=== PATIENT | male | born 1990 | race Two or more races ===

== ENCOUNTER 2017-11-11 01:33 | Emergency (ER) | payer BC ==
[~2017-11-11] VITALS: Ht 167.6 cm; Wt 77.1 kg
[2017-11-11] MEDS ORDERED: BUPR-96 PO (01:45)
--- NOTE | 2017-11-11 01:48 | NUR ---
DR. SOLIMAN AT BEDSIDE FOR MSE.
[2017-11-11] MEDS ORDERED: DICYCLOMINE HCL 10 MG/5 ML UDC LIQ ONE (01:58)
[2017-11-11] MEDS ORDERED: MAG HYDROX/AL HYDROX/SIMETH 30 ML LIQUID UDC ONE ×2 (01:58)
--- NOTE | 2017-11-11 01:59 | NUR ---
PT GIVEN GI COCKTAIL. PT RESTING COMFORTABLY IN BED.
[2017-11-11] MEDS ORDERED: DICYCLOMINE HCL 10 MG/5 ML UDC LIQ PO ONE (02:00)
[2017-11-11] MEDS ORDERED: MAG HYDROX/AL HYDROX/SIMETH 30 ML LIQUID UDC PO ONE (02:00)
--- NOTE | 2017-11-11 02:18 | NUR ---
Patient discharged to home in stable conditon. Written and verbal after care instructions given. Patient verbalizes understanding of instructions. Pt left ER and walks in steady gait. Pt denies any SOB/Chest pain at this time.
[2017-11-11 02:19] VITALS: BP 144/101
== END 2017-11-11 02:20 | disposition home or self-care (01) ==
LOC: ER 01:38
DX: K21.9 Gastro-esophageal reflux disease without esophagitis (principal); Z79.899 Other long term (current) drug therapy
CPT/HCPCS: A4663